=== PATIENT | male | born 1990 ===

== ENCOUNTER 2023-01-16 12:53 | Day surgery (SDC) | payer BC ==
[2023-01-16] MEDS ORDERED: Famotidine 20 MG/2 ML SDV IVPUSH ONE (13:43)
[2023-01-16] MEDS ORDERED: Ondansetron 4 MG/2 ML SDV IVPUSH ONE (13:43)
[2023-01-16] MEDS ORDERED: Pantoprazole 40 MG in Sodium Chloride 0.9% 10 ML IVPUSH ONE (13:43)
[2023-01-16] MEDS ORDERED: Sodium Chloride 0.9% 10 ML Syringe FLUSH PRN (13:43)
[2023-01-16] MEDS ORDERED: Sodium Chloride 0.9% 2.5 ML Syringe FLUSH PRN (13:43)
[2023-01-16 13:54] LABS: BASOPHILS PERCENT AUTO 0.5 % (0.0-1.5); EOSINOPHILS ABSOLUTE AUTO 0.4 K/uL (0.0-0.7); EOSINOPHILS PERCENT AUTO 5.2 % (0.0-7.0); HEMOGLOBIN 14.6 g/dL (13.0-17.0); LYMPHOCYTES ABSOLUTE AUTO 2.3 K/uL (0.6-2.4); LYMPHOCYTES PERCENT AUTO 30.6 % (16.0-40.0); MEAN CORPUSCULAR HEMOGLOBIN 29.3 pg (27.0-32.0); MEAN CORPUSCULAR VOLUME 86.3 fL (80.0-98.0); MONOCYTES ABSOLUTE AUTO 0.6 K/uL (0.0-0.8); MONOCYTES PERCENT AUTO 7.9 % (0.0-15.0); NEUTROPHILS ABSOLUTE AUTO 4.2 K/uL (1.4-5.7); NEUTROPHILS PERCENT AUTO 55.8 % (48.0-80.0); NRBC ABSOLUTE 0 K/uL; PLATELET COUNT,PLT 261 K/uL (150-400); RED BLOOD CELL COUNT 4.98 M/uL (4.50-5.90); WHITE BLOOD CELL COUNT,WBC 7.49 K/uL (4.0-11.0)
[2023-01-16 14:21] LABS: ALBUMIN 3.9 g/dL (3.4-5.0); BILIRUBIN TOTAL 0.5 mg/dL (0.2-1.0); CALCIUM 9.1 mg/dL (8.5-10.1); CARBON DIOXIDE,CO2 28.6 mmol/L (21.0-32.0); CREATININE 1.1 mg/dL (0.8-1.3); EST CRCL DRUG DOSING (CG) 83.76 mL/min; POTASSIUM,K 3.9 mmol/L (3.5-5.1)
[2023-01-16] MEDS ORDERED: fentaNYL 100 MCG/2 ML SDV ONE (14:35)
[2023-01-16] MEDS ORDERED: propofoL 50 ML ONE (14:35)
[2023-01-16] MEDS ORDERED: Succinylcholine/Sod PF 100 MG/5 ML SYRINGE IV ONE ×2 (14:35)
[2023-01-16] MEDS ORDERED: Lactated Ringers 1,000 ML IV SCH ×2 (14:45→15:45)
== END 2023-01-16 16:35 | disposition home or self-care (01) ==
LOC: MW.ED 12:53 → MW.SDS 14:05
PROVIDERS: ATTEND Surgery
DX: T18.128A Food in esophagus causing other injury, initial encounter (principal); K22.2 Esophageal obstruction; K29.50 Unspecified chronic gastritis without bleeding; K20.90 Esophagitis, unspecified without bleeding
CPT/HCPCS: 36415; 43239; 43247; 80053; 83690; 85025; 96374; 96375; 99284; C9113; J0330; J2405; J2704; J3010; J3490; 00731

== ENCOUNTER 2023-06-05 06:59 | Emergency (ER) | payer BC ==
[2023-06-05] MEDS ORDERED: Dexamethasone 10 MG/ML SDV PO ONE (07:22)
== END 2023-06-05 09:15 | disposition home or self-care (01) ==
LOC: MW.ED 06:59
DX: J02.9 Acute pharyngitis, unspecified (principal)
CPT/HCPCS: 69209; 87651; 99283; J8540